=== PATIENT | female | born 1985 | race Caucasian/White ===

== ENCOUNTER → 2018-02-20 | Outpatient (CLI) | payer OTHER | END | disposition home or self-care (01) | LOC: KCIC 12:23 | DX: R10.84 Generalized abdominal pain (principal) | CPT/HCPCS: 74018 ==

== ENCOUNTER → 2019-02-19 | Outpatient (CLI) | payer OTHER ==
[~2019-02-19] MED LIST: ALBU2.5V8 INH; COLC0.6T34 PO; CONTRAST GIVEN. MC PRN; CYCL10TA2 PO; IOHEXOL 300 MG/ML 100ML VIAL. IV ONE; SUMA100T4 PO; TRIA15CR TP
--- NOTE | 2019-02-19 16:42 | KCIC ---
EXAM: Abdomen CT with intravenous contrast. HISTORY: Adrenal insufficiency. TECHNIQUE: Computed tomographic images of the abdomen were obtained following the administration of 100 cc Omnipaque 300 intravenous contrast. *One or more of the following individualized dose reduction techniques were utilized for this examination: 1. Automated exposure control. 2. Adjustment of the mA and/or kV according to patient size. 3. Use of iterative reconstruction technique. COMPARISON: None. FINDINGS: Evaluation of the lower thorax is unremarkable. A liver is upper normal in size. The spleen is normal in size. There is a round nodule measuring 1.2 cm inferior to the spleen, likely due to a splenule. The gallbladder, pancreas and adrenal glands are unremarkable. There is superior left renal cortical lobulation and thinning due to scarring. There is a prominent left renal pelvis, likely due to an extrarenal pelvis. This is not clearly within limits to suggest ureteropelvic junction obstruction/stenosis. The visualized loops of bowel are unremarkable. There is no lymphadenopathy. There is no suspicious osseous lesion. There are degenerative changes involving the lower thoracic levels. IMPRESSION: 1. No acute abdominal finding. 2. Superior left renal cortical scarring and dilated left renal pelvis, likely due to an extrarenal pelvis. Electronically signed by: Joana Butler MD (02/19/2019 4:39 PM) [id number]
== END ==
LOC: KCIC CT 12:43
PROVIDERS: ATTEND Family Medicine
DX: N28.89 Other specified disorders of kidney and ureter (principal); M47.814 Spondylosis without myelopathy or radiculopathy, thoracic region; E27.40 Unspecified adrenocortical insufficiency; J45.909 Unspecified asthma, uncomplicated; Z87.891 Personal history of nicotine dependence
CPT/HCPCS: 74160; Q9967